=== PATIENT | female | born 1985 | race Caucasian/White ===

== ENCOUNTER 2019-09-17 16:05 | Outpatient (REF) | payer MEDICAID, SELFPAY ==
[2019-09-17 20:20] LABS: COMMENT (LAB VIEW ONLY) 38.86 mg/dL; Microalb ug/mg Crea 40.4 ug/mg Cr
== END 2019-09-17 16:25 ==
LOC: NCHCN 16:05
PROVIDERS: PCP Nurse Practitioner Family; Visit Provider Physician Assistant
DX: R73.03 Prediabetes (principal)
CPT/HCPCS: 82043; 82570

== ENCOUNTER 2020-01-01 09:24 | Outpatient (REF) | payer MEDICAID, SELFPAY ==
[2020-01-06 13:38] LABS: Patient Race White; SARS-CoV-2 RNA Undetected (Undetected); SARS-CoV-2 Specimen Source Nasal
== END 2020-01-01 09:44 ==
LOC: NCHCN 09:24
PROVIDERS: PCP Nurse Practitioner Family; Visit Provider Physician Assistant
DX: Z20.828 Contact with and (suspected) exposure to other viral communicable diseases (principal)
CPT/HCPCS: U0003

== ENCOUNTER 2020-01-12 14:04 | Outpatient (REF) | payer MEDICAID, SELFPAY ==
[2020-01-12 20:06] LABS: Hemoglobin A1C 6.2 % (<5.7)
[2020-01-12 20:13] LABS: ALT 42 U/L (14-59); AST 20 U/L (15-37); Albumin 3.8 g/dL (3.4-5.0); Alkaline Phosphatase 91 U/L (46-116); Anion Gap 8.9 mmol/L (3-11); BUN 9 mg/dL (7-18); Bilirubin, Total 0.3 mg/dL (0.2-1.0); CO2 26.1 mmol/L (21.0-32.0); CREATININE 0.51 mg/dL (0.55-1.02); Calcium 8.7 mg/dL (8.5-10.1); Calculated LDL 127 mg/dL (<100); Chloride 104 mmol/L (98-107); Cholesterol 173 mg/dL (<200); Glucose 110 mg/dL (74-106); HDL Cholesterol 28 mg/dL (40-60); Potassium 4.2 mmol/L (3.5-5.1); Sodium 139 mmol/L (136-145); TSH (W/Ref FT4) 1.43 uIU/mL (0.36-3.74); Total Protein 7.2 g/dL (6.4-8.2); Triglyceride 93 mg/dL (<150)
[2020-01-12 20:24] LABS: C-Reactive Protein 0.99 mg/dL (0.0-0.3)
[2020-01-12 20:27] LABS: ESR 15 mm/hr (0-20)
== END 2020-01-12 14:24 ==
LOC: NCHCN 14:04
PROVIDERS: PCP Nurse Practitioner Family; Visit Provider Physician Assistant
DX: L40.0 Psoriasis vulgaris (principal)
CPT/HCPCS: 80053; 80061; 85652; 83036; 84443; 86140

== ENCOUNTER 2020-03-01 15:48 | Outpatient (REF) | payer MEDICAID, SELFPAY ==
[2020-03-03 19:48] LABS: COVID-19 RT-PCR UVMMC Result Negative (Negative)
== END 2020-03-01 16:08 ==
LOC: NCHCN 15:48
PROVIDERS: PCP Nurse Practitioner Family; Visit Provider Physician Assistant
DX: J06.9 Acute upper respiratory infection, unspecified (principal)
CPT/HCPCS: U0003

== ENCOUNTER 2020-09-27 20:18 | Outpatient (REF) | payer MEDICAID, SELFPAY ==
[2020-09-27 20:34] LABS: COMMENT (LAB VIEW ONLY) 12.23 mg/dL; Microalb ug/mg Crea 51.5 ug/mg Cr
== END 2020-09-27 20:19 | disposition home or self-care (01) ==
LOC: NCHCN 20:18
PROVIDERS: PCP Nurse Practitioner Family; Visit Provider Physician Assistant
DX: E11.9 Type 2 diabetes mellitus without complications (principal)
CPT/HCPCS: 82043; 82570

== ENCOUNTER 2020-12-30 08:55 | Outpatient (REF) | payer MEDICAID, SELFPAY ==
[2021-01-01 14:31] LABS: COVID-19 RT-PCR UVMMC Result Negative (Negative)
== END 2020-12-30 08:56 | disposition home or self-care (01) ==
LOC: NCHCN 08:55
PROVIDERS: PCP Nurse Practitioner Family; Visit Provider Physician Assistant
DX: Z20.822 Contact with and (suspected) exposure to COVID-19 (principal); J06.9 Acute upper respiratory infection, unspecified
CPT/HCPCS: U0003

== ENCOUNTER 2021-01-02 14:45 | Outpatient (REF) | payer MEDICAID, SELFPAY ==
[2021-01-04 15:46] LABS: COVID-19 RT-PCR UVMMC Result Negative (Negative)
== END 2021-01-02 14:46 | disposition home or self-care (01) ==
LOC: NCHCN 14:45
PROVIDERS: PCP Nurse Practitioner Family; Visit Provider Nurse Practitioner Family
DX: Z20.822 Contact with and (suspected) exposure to COVID-19 (principal); R05.8 Other specified cough; R09.89 Other specified symptoms and signs involving the circulatory and respiratory systems
CPT/HCPCS: U0003

== ENCOUNTER 2021-02-23 16:09 | Outpatient (REF) | payer MEDICAID, SELFPAY ==
[2021-02-23 19:37] LABS: Anion Gap 11.5 mmol/L (3-11); BUN 15 mg/dL (7-18); CO2 23.5 mmol/L (21.0-32.0); CREATININE 0.4 mg/dL (0.55-1.02); Calcium 9.1 mg/dL (8.5-10.1); Chloride 104 mmol/L (98-107); Glucose 124 mg/dL (74-106); LDL CHOLESTEROL 95 mg/dL (<100); Potassium 4.4 mmol/L (3.5-5.1); Sodium 139 mmol/L (136-145)
== END 2021-02-23 16:10 | disposition home or self-care (01) ==
LOC: NCHCN 16:09
PROVIDERS: PCP Nurse Practitioner Family; Visit Provider Physician Assistant
DX: E11.9 Type 2 diabetes mellitus without complications (principal)
CPT/HCPCS: 80048; 83721

== ENCOUNTER 2021-11-03 10:42 | Outpatient (REF) | payer MEDICAID, SELFPAY ==
--- NOTE | 2021-11-03 09:20 | PAPFT_PTH ---
PATIENT: Noni Hanson LOC: [facility]#:[id number] AGE/SX: 36/F ROOM: RE11/03/[address]: Rani Garcia : 1985 BED: DIS: 11/03/2021 SPEC #: [id number] RECD: 11/06/21 13:12 STATUS: ANIKET REQ #: [id number] SUZY: 11/03/21 09:[address]: Rani Garcia DEPT: [facility] Cytology RECD BY: Anny Garcia ENTERED: 11/06/21 13:12 SP TYPE: PAPFT OTHR DR: Yris Holliday Tissues: 1 - CX/ENDOCX FOR PAP SMEARS Procedures: PAP THIN PREP/[facility] Screening HPV DNA PROBE Comments: [id number]
== END 2021-11-03 10:43 | disposition home or self-care (01) ==
LOC: NCHCN 10:42
PROVIDERS: PCP Nurse Practitioner Family; Visit Provider Physician Assistant
DX: Z12.4 Encounter for screening for malignant neoplasm of cervix (principal)
CPT/HCPCS: 88142; 87624

== ENCOUNTER 2022-03-13 14:16 | Outpatient (REF) | payer MEDICAID, SELFPAY ==
[2022-03-13 19:49] LABS: ALT 32 U/L (14-59); AST 23 U/L (15-37); Albumin 3.7 g/dL (3.4-5.0); Alkaline Phosphatase 111 U/L (46-116); Anion Gap 8.8 mmol/L (3-11); BUN 12 mg/dL (7-18); Bilirubin, Total 0.3 mg/dL (0.2-1.0); CO2 25.2 mmol/L (21.0-32.0); CREATININE 0.5 mg/dL (0.55-1.02); Calcium 9.3 mg/dL (8.5-10.1); Chloride 103 mmol/L (98-107); Estimated GFR 124.58 (mL/min/1.73m2); Glucose 179 mg/dL (74-106); Potassium 3.7 mmol/L (3.5-5.1); Sodium 137 mmol/L (136-145); TSH (W/Ref FT4) 1.57 uIU/mL (0.36-3.74); Total Protein 7.6 g/dL (6.4-8.2)
== END 2022-03-13 14:17 | disposition home or self-care (01) ==
LOC: NCHCN 14:16
PROVIDERS: PCP Physician Assistant; Visit Provider Physician Assistant
DX: E11.9 Type 2 diabetes mellitus without complications (principal); E78.41 Elevated Lipoprotein(a); Z98.51 Tubal ligation status
CPT/HCPCS: 80053; 84443

== ENCOUNTER 2023-03-19 13:44 | Outpatient (REF) | payer MEDICAID, SELFPAY ==
[2023-03-19 20:35] LABS: COMMENT (LAB VIEW ONLY) 58.88 mg/dL
[2023-03-19 20:49] LABS: Microalb ug/mg Crea 369.1 ug/mg Cr
== END 2023-03-19 13:45 | disposition home or self-care (01) ==
LOC: NCHCN 13:44
PROVIDERS: PCP Physician Assistant; Visit Provider Physician Assistant
DX: E11.9 Type 2 diabetes mellitus without complications (principal)
CPT/HCPCS: 82043; 82570

== ENCOUNTER 2023-03-27 11:28 | Outpatient (REF) | payer MEDICAID, SELFPAY ==
[2023-03-27 20:41] LABS: Hemoglobin A1C 6.4 % (<5.7)
[2023-03-27 20:47] LABS: ALT 30 U/L (14-59); AST 18 U/L (15-37); Albumin 3.5 g/dL (3.4-5.0); Alkaline Phosphatase 91 U/L (46-116); Anion Gap 8.1 mmol/L (3-11); BUN 6 mg/dL (7-18); Bilirubin, Total 0.5 mg/dL (0.2-1.0); CO2 27.9 mmol/L (21.0-32.0); CREATININE 0.5 mg/dL (0.55-1.02); Calcium 9.1 mg/dL (8.5-10.1); Calculated LDL 78 mg/dL (<100); Chloride 101 mmol/L (98-107); Cholesterol 132 mg/dL (<200); Estimated GFR 123.81 (mL/min/1.73m2); Glucose 112 mg/dL (74-106); HDL Cholesterol 39 mg/dL (40-60); Sodium 137 mmol/L (136-145); Total Protein 7.7 g/dL (6.4-8.2); Triglyceride 75 mg/dL (<150)
[2023-03-27 21:06] LABS: PROTEIN < 6.0 mg/dL
[2023-03-27 21:17] LABS: COMMENT (LAB VIEW ONLY) < 13.00 mg/dL
[2023-03-29 12:19] LABS: IgA 151 mg/dL (85-499); Interpretation (See Note); Tissue Transglutaminase IgA <4.0 CU (<20.0)
== END 2023-03-27 11:29 | disposition home or self-care (01) ==
LOC: NCHCN 11:28
PROVIDERS: PCP Physician Assistant; Visit Provider Physician Assistant
DX: E11.9 Type 2 diabetes mellitus without complications (principal); R80.9 Proteinuria, unspecified; R19.7 Diarrhea, unspecified
CPT/HCPCS: 80053; 80061; 82784; 83516; 82565; 83036; 84156

== ENCOUNTER 2023-03-29 14:54 | Outpatient (REF) | payer MEDICAID, SELFPAY ==
[2023-03-29 19:16] LABS: COMMENT (LAB VIEW ONLY) 14.72 mg/dL; PROTEIN 6.2 mg/dL; Prot/Crea Ur Ratio 0.42
== END 2023-03-29 14:55 | disposition home or self-care (01) ==
LOC: NCHCN 14:54
PROVIDERS: PCP Physician Assistant; Visit Provider Physician Assistant
DX: R80.8 Other proteinuria (principal)
CPT/HCPCS: 82565; 84156

== ENCOUNTER 2024-04-03 13:51 | Outpatient (REF) | payer MEDICAID, SELFPAY ==
[2024-04-03 19:08] LABS: ESR 18 mm/hr (0-20)
[2024-04-03 19:09] LABS: Abs Immature Grans 0.02 10^3/uL (0.0-0.06); Absolute Basophil Count 0.04 10^3/uL (0.0-0.2); Absolute Eosinophil Count 0.06 10^3/uL (0.0-0.7); Absolute Lymphocyte Count 2.12 10^3/uL (1.2-3.4); Absolute Monocyte Count 0.76 10^3/uL (0.1-0.8); Absolute Neutrophil Count 3.36 10^3/uL (1.2-6.7); Basophils % 0.6 %; Eosinophils % 0.9 %; HCT 37.7 % (36.0-46.0); HGB 11.7 g/dL (11.2-15.7); Immature Grans % 0.3 %; Lymphocytes % 33.3 %; MCH 23.1 pg (27.0-33.0); MCV 74 fL (80-95); MPV 8.7 fL (8.0-11.0); Monocytes % 11.9 %; Platelet Count 358 10^3/uL (130-400); RBC 5.07 10^6/uL (3.93-5.22); RDW 15.6 % (11.7-14.6); RDW-SD 41.7 fL; WBC 6.36 10^3/uL (4.4-10.8)
[2024-04-03 19:19] LABS: ALT 26 U/L (14-59); AST 18 U/L (15-37); Albumin 3.4 g/dL (3.4-5.0); Alkaline Phosphatase 89 U/L (46-116); Anion Gap 5.7 mmol/L (3-11); BUN 12 mg/dL (7-18); Bilirubin, Total 0.26 mg/dL (0.2-1.0); C-Reactive Protein 0.61 mg/dL (<or=0.5); CO2 27.3 mmol/L (21.0-32.0); CREATININE 0.5 mg/dL (0.55-1.02); Calcium 9.1 mg/dL (8.5-10.1); Chloride 106 mmol/L (98-107); Estimated GFR 123.04 (mL/min/1.73m2); Glucose 105 mg/dL (74-106); Potassium 4.6 mmol/L (3.5-5.1); Sodium 139 mmol/L (136-145); Total Protein 7.1 g/dL (6.4-8.2)
[2024-04-03 19:23] LABS: Diff Comment RBC Morph Reviewed; Microcytosis 1+
[2024-04-03 20:00] LABS: Bilirubin Negative (Negative); Blood Trace-intact (Negative); Clarity Clear (Clear); Glucose Negative (Negative); Ketones Negative (Negative); Leukocyte Esterase Negative (Negative); Nitrite Negative (Negative); Urobilinogen 0.2 mg/dL (Up to 0.2); pH 5.5 (5-8)
[2024-04-03 20:06] LABS: Bacteria Rare HPF (Negative); C & S Indicated? No; Casts Negative LPF (Negative); Crystals Negative HPF (Negative); Epithelial Cells Rare HPF (Negative); Mucus Negative (Negative); WBC Negative HPF (0-5)
[2024-04-03 20:15] LABS: COMMENT (LAB VIEW ONLY) 13.67 mg/dL
[2024-04-03 20:20] LABS: Microalb ug/mg Crea 119.2 ug/mg Cr
== END 2024-04-03 13:52 | disposition home or self-care (01) ==
LOC: NCHCN 13:51
PROVIDERS: PCP Physician Assistant; Visit Provider Physician Assistant
DX: E11.9 Type 2 diabetes mellitus without complications (principal); L40.0 Psoriasis vulgaris; R10.9 Unspecified abdominal pain
CPT/HCPCS: 80053; 85652; 81003; 81015; 82043; 82570; 85025; 86140

== ENCOUNTER 2024-04-23 11:25 | Outpatient (REF) | payer MEDICAID, SELFPAY ==
[2024-04-23 20:09] LABS: Iron 47 ug/dL (50-170); Total Iron Binding Capacity 296 ug/dL (250-450); Transferrin Sat 16 % (15-50)
[2024-04-23 22:19] LABS: Ferritin 71 ng/mL (8-252)
== END 2024-04-23 11:26 | disposition home or self-care (01) ==
LOC: NCHCN 11:25
PROVIDERS: PCP Physician Assistant; Visit Provider Physician Assistant
DX: R71.8 Other abnormality of red blood cells (principal)
CPT/HCPCS: 82728; 83540; 83550

== ENCOUNTER 2024-10-30 13:30 | Outpatient (REF) | payer MEDICAID, SELFPAY ==
[2024-10-30 19:18] LABS: Abs Immature Grans 0.02 10^3/uL (0.0-0.06); HCT 37.8 % (36.0-46.0); HGB 11.9 g/dL (11.2-15.7); Immature Grans % 0.3 %; MCH 22.9 pg (27.0-33.0); MCHC 31.5 % (32.0-36.0); MCV 73 fL (80-95); MPV 8.7 fL (8.0-11.0); Platelet Count 359 10^3/uL (130-400); RBC 5.19 10^6/uL (3.93-5.22); RDW 15.1 % (11.7-14.6); RDW-SD 39.5 fL; WBC 6.21 10^3/uL (4.4-10.8)
[2024-10-30 19:32] LABS: Iron 40 ug/dL (50-170); Total Iron Binding Capacity 348 ug/dL (250-450); Transferrin Sat 11 % (15-50)
[2024-10-30 19:41] LABS: ALT 29 U/L (14-59); AST 18 U/L (15-37); Albumin 3.6 g/dL (3.4-5.0); Alkaline Phosphatase 98 U/L (46-116); Anion Gap 6.5 mmol/L (3-11); BUN 11 mg/dL (7-18); Bilirubin, Total 0.4 mg/dL (0.2-1.0); CO2 28.5 mmol/L (21.0-32.0); Calcium 9.4 mg/dL (8.5-10.1); Chloride 104 mmol/L (98-107); Estimated GFR 129.03 (mL/min/1.73m2); Ferritin 19 ng/mL (8-252); Glucose 145 mg/dL (74-106); Potassium 4.2 mmol/L (3.5-5.1); Sodium 139 mmol/L (136-145); Total Protein 7.1 g/dL (6.4-8.2)
[2024-10-30 19:46] LABS: Microcytosis 1+
== END 2024-10-30 13:31 | disposition home or self-care (01) ==
LOC: NCHCN 13:30
PROVIDERS: PCP Physician Assistant; Visit Provider Physician Assistant
DX: E11.9 Type 2 diabetes mellitus without complications (principal); D50.9 Iron deficiency anemia, unspecified
CPT/HCPCS: 80053; 83721; 82728; 83540; 83550; 85025